=== PATIENT | male | born 1990 | race African-American/Black ===

== ENCOUNTER 2017-01-04 03:55 | Emergency (ER) | payer MEDICAID, OTHER ==
[~2017-01-04] VITALS: Ht 175.3 cm; Wt 157.0 kg
[2017-01-04] MEDS ORDERED: KETOROLAC 30MG/ML VIAL IV STA (04:21)
[2017-01-04] MEDS ORDERED: FAMOTIDINE 20MG/2ML VIAL IV ONE (04:30)
[2017-01-04 04:37] LABS: HEMATOCRIT. 45.5 % (42.0-52.0); HEMOGLOBIN. 14.8 g/dL (14.0-18.0); MEAN CORPUSCULAR HEMOGLOBIN 22.4 pg (28.0-32.0); MEAN PLATELET VOLUME 7.7 fl (7.4-10.4); PLATELET 341 x1000/uL (130-400); RED CELL DISTRIBUTION WIDTH 15.3 % (11.6-14.6)
[2017-01-04 04:54] LABS: CARBON DIOXIDE 22 mEq/L (21-32); CHLORIDE 108 mEq/L (98-107)
[2017-01-04 05:05] LABS: ATYPICAL LYMPHOCYTES 2; PLATELET ESTIMATE NORMAL
[2017-01-04 06:38] LABS: CLARITY URINE CLEAR (CLEAR); COLOR URINE YELLOW (YELLOW); GLUCOSE URINE NEGATIVE (NEGATIVE); KETONES URINE NEGATIVE (NEGATIVE); LEUKOCYTE ESTERASE URINE TRACE (NEGATIVE); NITRITE URINE NEGATIVE (NEGATIVE); OCCULT BLOOD URINE NEGATIVE (NEGATIVE); PROTEIN URINE NEGATIVE (NEGATIVE); UROBILINOGEN URINE 0.2 E.U./dL (0.2-1.0)
[2017-01-04 08:40] VITALS: BP 123/64
== END 2017-01-04 08:50 | disposition home or self-care (01) ==
LOC: ER 03:55
DX: R10.13 Epigastric pain (principal); K80.80 Other cholelithiasis without obstruction; K76.0 Fatty (change of) liver, not elsewhere classified; R19.7 Diarrhea, unspecified; I51.7 Cardiomegaly
CPT/HCPCS: 36415; 71010; 76705; 80053; 81001; 83690; 85025; 96374; 96375; 99285; J1885; J3490; Z7610

== ENCOUNTER 2020-12-14 03:31 | Emergency (ER) | payer OTHER ==
[~2020-12-14] VITALS: Ht 167.6 cm; Wt 209.0 kg
[2020-12-14 04:20] LABS: HEMATOCRIT 42.4 % (42.0-52.0); HEMOGLOBIN 13.5 g/dL (14.0-18.0); MEAN CORPUSCULAR HEMOGLOBIN 21.5 pg (28.0-32.0); MEAN CORPUSCULAR VOLUME 67.3 fL (80.0-94.0); PLATELET 430 x1000/uL (130-400); RED CELL DISTRIBUTION WIDTH 15.6 % (11.6-14.6)
[2020-12-14 04:21] LABS: CLARITY URINE CLEAR (CLEAR); COLOR URINE YELLOW (YELLOW); KETONES URINE 1+ (NEGATIVE); LEUKOCYTE ESTERASE URINE NEGATIVE (NEGATIVE); NITRITE URINE NEGATIVE (NEGATIVE); OCCULT BLOOD URINE 1+ (NEGATIVE); PH URINE 5.5 (4.5-8.0); PROTEIN URINE 2+ (NEGATIVE); SPECIFIC GRAVITY URINE 1.049 (1.005-1.030)
[2020-12-14 04:24] LABS: CHLORIDE 102 mEq/L (98-107)
[2020-12-14 04:31] LABS: BETA HYDROXYBUTYRATE 0.9 mMol/L (0.0-0.3)
[2020-12-14] MEDS ORDERED: INSULIN LISPRO 100 UNITS/ML SUBCUT SCH (05:00)
[2020-12-14] MEDS ORDERED: SODIUM CHLORIDE 0.9% 1,000 ML IV ONE (05:00)
[2020-12-14 09:05] VITALS: BP 147/86
== END 2020-12-14 09:38 | disposition short-term general hospital (02) ==
LOC: ER 03:31
DX: E11.9 Type 2 diabetes mellitus without complications (principal); I10 Essential (primary) hypertension; E66.01 Morbid (severe) obesity due to excess calories; Z68.45 Body mass index [BMI] 70 or greater, adult; Z71.3 Dietary counseling and surveillance
CPT/HCPCS: 36415; 80053; 81003; 82010; 82962; 83036; 85027; 96372; 99283; J1815